=== PATIENT | male | born 1990 | race Caucasian/White ===

== ENCOUNTER 2024-11-21 11:02 | Observation (INO) | payer BC ==
[~2024-11-21] VITALS: Ht 182.9 cm; Wt 90.7 kg
[2024-11-21] MEDS ORDERED: HYDROmorphone HCl/Pf 1MG SYR IV ONE ×4 (11:10→17:50)
[2024-11-21] MEDS ORDERED: Ondansetron HCl 2 MG / ML 2ML Vial IV ONE (11:10)
[2024-11-21] MEDS ORDERED: Ketamine HCl 100 MG / ML 5ML Vial IV ONE (14:10)
[2024-11-21] MEDS ORDERED: NS 1,000 ML IV ONE (14:35)
[2024-11-21] MEDS ORDERED: NS 1,000 ML IV SCH (14:35)
[2024-11-21] MEDS ORDERED: Ondansetron HCl 2 MG / ML 2ML Vial ONE (15:02)
[2024-11-21] MEDS ORDERED: Ketorolac Tromethamine 30mg Vial IV ONE (15:10)
[2024-11-21] MEDS ORDERED: CeFAZolin Sodium 1,000 MG in NS 50 ML IV ONE (15:20)
[2024-11-21] MEDS ORDERED: Ondansetron HCl 2 MG / ML 2ML Vial IV PRN (18:35)
[2024-11-21] MEDS ORDERED: HYDROmorphone HCl/Pf 1MG SYR IV PRN (18:35)
[2024-11-21 20:40] VITALS: BP 141/94
--- NOTE | 2024-11-21 21:12 | NUR ---
ARRIVAL TO ROOM 215 FROM ER AT 2027. PT ARRIVED TO SURGICAL UNIT VIA GURNEY. PT ABLE TO TRANSFER FROM [facility] TO HOSPITAL BED WITH SUPPORT OF LEFT LOWER EXTREMITY. LEFT LOWER EXTREMITY ELEVATED ON PILLOWS, ICE PACKS PLACED AND SPLINT INTACT. PT WIGGLES TOES, DENIES N/T. PT ORIENTED TO ROOM AND CALL LIGHT, DENIES IGNITION SOURCES.
[2024-11-21] MEDS ORDERED: NS 250 ML IV PRN (23:10)
[2024-11-22] VITALS (16 sets, daily range): BP systolic 117–161; BP diastolic 58–97
[2024-11-22] MEDS ORDERED: CeFAZolin Sodium 1,000 MG in NS 50 ML IV SCH
[2024-11-22] MEDS ORDERED: CeFAZolin 1000MG in D5W 50 ML IV SCH
--- NOTE | 2024-11-22 08:53 | NUR ---
SHIFT SUMMARY NOC. PT A/O X4, PT NPO SINCE 0000 FOR PLANNED SURGERY TODAY. PT'S LLE SPLINTED, ELEVATED ON PILLOWS, WITH ICE PACKS. PULSES INTACT, PT ABLE TO WIGGLE TOES. PT PAIN MANAGED WITH IV DILAUDID. AT [facility] T/O NIGHT. PT VOIDING URINE. MAKES NEEDS KNOWN, CALL LIGHT IN REACH.
[2024-11-22] MEDS ORDERED: Tranexamic Acid 100 ML IV SCH (12:04)
--- NOTE | 2024-11-22 13:31 | NUR ---
History, Chart, Medications and Allergies reviewed before start of procedure. Patient confirms NPO status and agrees with scheduled surgery. DRESSING D/I TO LEFT LE. LEFT LEG ELEVATED ON PILLOWS. AT BEDSIDE.
[2024-11-22] MEDS ORDERED: FentaNYL Citrate 50 MCG/ML 2 ML Injection ONE (13:33)
[2024-11-22] MEDS ORDERED: Bupivacaine 0.5% W/EPI 1:200000 SDV 30 ML Vial ONE (14:03)
[2024-11-22] MEDS ORDERED: HYDROmorphone HCl/Pf 1MG SYR ONE ×2 (14:30→17:01)
[2024-11-22] MEDS ORDERED: Sugammadex Sodium 200 MG/2ML SDV (100 MG/ML) ONE (14:52)
[2024-11-22] MEDS ORDERED: Dexamethasone Sod Phos 10 MG/ML 1ML VIAL ONE (14:52)
[2024-11-22] MEDS ORDERED: Ondansetron HCl 2 MG / ML 2ML Vial ONE (14:52)
[2024-11-22] MEDS ORDERED: HYDROmorphone HCl/Pf 1MG SYR IV PRN ×2 (15:05→15:10)
[2024-11-22] MEDS ORDERED: FentaNYL Citrate 50 MCG/ML 2 ML Injection IV PRN ×2 (15:05)
[2024-11-22] MEDS ORDERED: Labetalol HCL 5 MG/ML 4ML Injection (Single Dose) IV PRN (15:05)
[2024-11-22] MEDS ORDERED: Ondansetron HCl 2 MG / ML 2ML Vial IV PRN (15:10)
--- NOTE | 2024-11-22 17:49 | NUR ---
PT TO ROOM 215. L LEG DRESSED WITH CARO WRAP. PULSES PALPABLE DISTALLY. IV TO SL. PT DROWSY, BUT ALERT TO VERBAL. WATER AND SNACKS PROVIDED. WILL CONTINUE TO MONITOR.
[2024-11-22] MEDS ORDERED: Ketorolac Tromethamine 15mg Vial IV SCH (19:00)
[2024-11-23 00:07] VITALS: BP 151/88
--- NOTE | 2024-11-23 04:41 | NUR ---
SHIFT SUMMARY NOC. POD 1 FOR LLE INTRAMEDULLARY RODDING. PT A/O X4. DRESSING TO LLE C/D/I ELEVATED ON PILLOWS AND ICE PACKS APPLIED. PT ABLE TO WIGGLE TOES WHEN ASKED, PULSES INTACT. PAIN MANAGED WITH ORAL OXY 10MG, TORADOL, AND TYLENOL. PT VOIDING URINE AND TOLERATING DIET. PT MAKES NEEDS KNOWN, CALL LIGHT IN REACH.
[2024-11-23 05:10] VITALS: BP 119/63
[2024-11-23 08:49] VITALS: BP 150/84
--- NOTE | 2024-11-23 09:08 | NUR ---
DC INSTRUCT REVIEWED. STATED UNDERSTANDING. RX PREVIOUSLY PICKED UP. HANDWRITTEN RX CRUTCHES DISPENSED. DC'D TO POV VIA W/C WITH WRITTEN INSTRUCT ACCOMPANIED BY .
== END 2024-11-23 09:05 | disposition home or self-care (01) ==
LOC: ER 11:02 → SURS 11:03
PROVIDERS: ADMIT Orthopaedic Surgery Sports Medicine
PROC: 0QSH06Z Reposition Left Tibia with Intramedullary Internal Fixation Device, Open Approach (ICD-10-PCS; principal; 2024-11-22 14:00)
DX: S82.252A Displaced comminuted fracture of shaft of left tibia, initial encounter for closed fracture (principal); S82.452A Displaced comminuted fracture of shaft of left fibula, initial encounter for closed fracture; W22.8XXA Striking against or struck by other objects, initial encounter; Y99.0 Civilian activity done for income or pay
CPT/HCPCS: 27752; 73590; 94760; 96365-59; 96375-59; 96376; 96376-59; 99152; 99285-25; A9270; C1713; C1769; G0378; J0690; J1100; J1171; J1885; J2405; J2704; J3010; J7030; J7050; J7120